=== PATIENT | male | born 1945 | race Caucasian/White ===

== ENCOUNTER 2024-04-27 07:47 | Emergency (ER) | payer OTHER, SELFPAY ==
[2024-04-27 07:55] VITALS: BP 141/78
--- NOTE | 2024-04-27 09:34 | ED.MUSCINJ ---
HPI-Injury
General
Chief Complaint: Musculo-Skeletal Complaint
Source: patient
Exam Limitations: none
Time Seen by Provider: 04/27/24 09:27
Travel History
Have you had any contact with someone who has COVID-19?: No
Do you have any symptoms of coronavirus? Fever > 100 degrees, chills, cough, shortness of breath, sore throat, loss of taste or smell, muscle aches, or headache?: No
History of Present Illness-Injury
Initial Injury comments:
78-year-old male presents complaining of right-sided neck pain starting getting worse today. Hurts to move hurts to lay down and stand up. He remembers adjusting his dog's bed while laying down. He thinks he strained his neck then. No
associated chest pain or shortness of breath. The pain is not pleuritic. It feels better after warm compress and Advil. It is worse to turn his head to the right. No other
Phy Exam
Physical Exam
Physical Exam:
General: Well-appearing male no acute respiratory distress HEENT: Normocephalic atraumatic
Musculoskeletal exam: Right sided paraspinous muscle tenderness to the cervical spine. Midline cervical spine nontender. Good range of motion right shoulder. Limited rotation to the right and lateral bending to the right of the cervical spine.
Heart: Regular rate and rhythm no murmur
Lungs: Clear no wheeze
Injury Course
Orders/Labs/Results
Orders:
Orders
04/27/24 08:20
Electrocardiogram (*1) Urgent
Reason for Study: Chest Pain
EKG- Treatment ONCE
Shoulder, Right 2 Views [CR Shoulder - Right Min 2 View] Urgent
Comment:
Reason For Exam: pain
MDM/Problems Addressed
Differential Diagnosis Includes:
Neck pain after moving a dog several days ago. Suspect cervical strain versus radiculopathy. X-rays of the shoulder were obtained through triage which show degenerative change throughout the shoulder joint. EKG shows sinus rhythm with
first-degree block. Do not suspect dissection or PE deftly seems more reproducible with motion. Recommend continue warm compresses and Advil. Stable for discharge.
*Critical Care Note
Total Time (30-74mins, 75-104mins- exclusive of procedures): Not Applicable
ED Attending Note
-
Portions of this chart may have been created with voice recognition software.� Occasional wrong word or��sound alike� substitutions may have occurred due to the inherent limitations of voice recognition software.
Discharge Plan
Departure
Patient Disposition: Home (Routine Discharge)
Date of Disposition: 04/27/24
Time of Disposition: 09:38
Patient with high blood pressure during this ER visit?: No
Discharge Problem:
Cervical strain
Instructions: Muscle and Bone Pain (DC)
Referrals:
Tigre Cerna MD [Family Provider] -
Activity Restrictions/Additional Instructions:
Continue with warm compresses. Continue with Advil as needed for pain. Rest. Return if worse otherwise follow-up with family doctor
Interventions
Interventions:
*ED COVID-19 Vaccine History Last Done: 04/27/24 07:55
Discharge Date and Time
Print Language: [place]
[2024-04-27 09:44] VITALS: BMI 27.5
== END 2024-04-27 09:48 | disposition home or self-care (01) ==
LOC: EMR 07:47
PROVIDERS: EMERGENCY PHYSICIAN Emergency Medicine; FAMILY PHYSICIAN Family Medicine
DX: S16.1XXA Strain of muscle, fascia and tendon at neck level, initial encounter (principal); X58.XXXA Exposure to other specified factors, initial encounter; I44.0 Atrioventricular block, first degree
CPT/HCPCS: 99283; 73030; 93005